=== PATIENT | male | born 1940 | race Caucasian/White ===

== ENCOUNTER 2022-03-31 18:21 | Observation (INO) | payer MEDICARE ==
[2022-03-31 18:53] LABS: #Basophils 0.1 10x3/uL (0.0-0.2); #Eosinphils 0.3 10x3/uL (0.0-0.5); #Monocytes 1.2 10x3/uL (0.0-1.1); #Neutrophils 7.7 10x3/uL (1.5-8.4); %Basophils 0.6 % (0.0-2.0); %Eosinophils 2.5 % (0.0-6.0); %Lymphocytes 27.9 % (18.0-47.0); %Monocytes 9.6 % (0.0-10.0); %Neutrophils 58.9 % (40.0-75.0); Hemoglobin 14.1 g/dL (13.5-17.5); Mean Corpuscular HGB CONC 35.1 g/dL (32.0-36.0); Mean Corpuscular Hemoglobin 31.5 pg (27.0-33.0); Mean Corpuscular Volume 89.7 fl (81.2-95.1); Mean Platelet Volume 9.8 fl (7.4-10.4); Platelet Count 271 10x3/uL (150-450); RBC Distribution Width 13.2 % (11.5-14.5); Red Blood Cell (RBC) Count 4.48 10x6/uL (4.32-5.72)
[2022-03-31 19:00] LABS: ALT (SGPT) 21 U/L (8-55); AST (SGOT) 22 U/L (5-34); Albumin 4.1 g/dL (3.4-4.8); Alkaline Phosphatase 68 U/L (40-110); Anion Gap 15 mmol/L (10-20); BUN (Urea Nitrogen) 13 mg/dL (8.4-25.7); Bilirubin, Total 1.1 mg/dL (0.2-1.2); Calc. Creatinine Clearance 0 mL/min (70-130); Calcium 9.1 mg/dL (7.8-10.44); Carbon Dioxide 23 mmol/L (23-31); Chloride 102 mmol/L (98-107); Estimated GFR 81; Globulin 2.5 g/dL (2.4-3.5); Glucose 102 mg/dL (83-110); Lipase 19 U/L (8-78); Potassium 4.2 mmol/L (3.5-5.1); Protein, Total 6.6 g/dL (5.8-8.1); Sodium 136 mmol/L (136-145)
[2022-03-31 19:23] LABS: CKMB 3.6 ng/mL (0-6.6)
[2022-03-31 19:46] LABS: SARS-CoV-2 NAA Rapid Test Not Detected (NotDetected)
[2022-03-31 22:39] LABS: CKMB 4.1 ng/mL (0-6.6)
[2022-03-31] MEDS ORDERED: Aspirin Chewable 81 MG TAB ONE (22:53)
[2022-04-01 00:36] VITALS: BP 123/77; TEMP 98.1
[2022-04-01] MEDS ORDERED: Acetaminophen 325 MG TAB PO PRN (00:53)
[2022-04-01] MEDS ORDERED: Senokot S 8.6-50 MG TAB PO PRN (00:53)
[2022-04-01 01:27] LABS: Troponin I 0.403 ng/mL (< 0.028)
[2022-04-01] MEDS ORDERED: Enoxaparin Sodium 100 MG/ML SYRINGE SC SCH ×2 (01:45→09:00)
[2022-04-01] MEDS ORDERED: Enoxaparin Sodium 100 MG/ML SYRINGE ONE (01:55)
[2022-04-01 08:05] LABS: Anion Gap 13 mmol/L (10-20); BUN (Urea Nitrogen) 13 mg/dL (8.4-25.7); Calc. Creatinine Clearance 95 mL/min (70-130); Calcium 8.6 mg/dL (7.8-10.44); Carbon Dioxide 23 mmol/L (23-31); Chloride 104 mmol/L (98-107); Estimated GFR 90; Glucose 93 mg/dL (83-110); Magnesium 1.9 mg/dL (1.6-2.6); Potassium 4.2 mmol/L (3.5-5.1); Sodium 136 mmol/L (136-145)
[2022-04-01] MEDS ORDERED: Famotidine 20 MG TAB ONE (08:31)
[2022-04-01] MEDS ORDERED: Lisinopril 10 MG TAB ONE (08:32)
[2022-04-01] MEDS ORDERED: Aspirin Chewable 81 MG TAB ONE (08:32)
[2022-04-01] MEDS ORDERED: Famotidine 20 MG TAB PO SCH (09:00)
[2022-04-01] MEDS ORDERED: Aspirin Chewable 81 MG TAB PO SCH (09:00)
[2022-04-01 12:12] LABS: Free T4 (Free Thyroxine) 0.99 ng/dL (0.70-1.48); Thyroid Stimulating Hormone 3.3431 uIU/mL (0.35-4.94)
== END 2022-04-01 11:29 | disposition home or self-care (01) ==
LOC: CSHERS 18:21 → INTOOBSV 04-01 00:30 → CSHERHOLD 04-01 00:30
PROVIDERS: ADMIT Student in an Organized Health Care Education/Training Program; ATTEND Internal Medicine
DX: I47.1 Supraventricular tachycardia (principal); I10 Essential (primary) hypertension; I34.1 Nonrheumatic mitral (valve) prolapse; E03.9 Hypothyroidism, unspecified; Z79.899 Other long term (current) drug therapy; Z20.822 Contact with and (suspected) exposure to COVID-19; R77.8 Other specified abnormalities of plasma proteins; E78.2 Mixed hyperlipidemia; Z79.82 Long term (current) use of aspirin; E78.00 Pure hypercholesterolemia, unspecified
CPT/HCPCS: 0240U; 71045; 80048; 80053; 82553; 83690; 83735; 84439; 84443; 84484 ×4; 85025; 93005; 94760; 96361; 96372; 96374; 99285; G0378; J1650